=== PATIENT | male | born 1975 | race African-American/Black ===

== ENCOUNTER 2021-05-05 10:38 | Emergency (ER) | payer BC ==
[2021-05-05 22:36] LABS: SARS-CoV-2 PCR by NAA DETECTED (NotDetected)
== END 2021-05-05 11:32 | disposition home or self-care (01) ==
LOC: ERS 10:38
DX: U07.1 COVID-19 (principal); F17.210 Nicotine dependence, cigarettes, uncomplicated
CPT/HCPCS: 99284; U0003; U0005

== ENCOUNTER 2021-06-18 05:22 | Emergency (ER) | payer BC, OTHER | END 2021-06-18 05:50 | disposition home or self-care (01) | LOC: ERS 05:22 | DX: M25.572 Pain in left ankle and joints of left foot (principal); M79.662 Pain in left lower leg; F17.210 Nicotine dependence, cigarettes, uncomplicated | CPT/HCPCS: 99283 ==

== ENCOUNTER 2022-12-16 16:31 | Emergency (ER) | payer OTHER ==
[2022-12-16] MEDS ORDERED: Orphenadrine Citrate 60 MG/2 ML VIAL ONE (17:41)
[2022-12-16] MEDS ORDERED: HYDROcodone/Acetaminophen 5/325 mg Tablet ONE (18:31)
[2022-12-16] MEDS ORDERED: Ketorolac Tromethamine 30 MG/ML VIAL ONE (18:31)
== END 2022-12-16 21:14 | disposition home or self-care (01) ==
LOC: ERS 16:31
DX: M54.50 Low back pain, unspecified (principal); I10 Essential (primary) hypertension; F17.210 Nicotine dependence, cigarettes, uncomplicated
CPT/HCPCS: 96372; 99283; J1885; J2360

== ENCOUNTER 2024-01-28 04:21 | Emergency (ER) | payer OTHER ==
[2024-01-28] MEDS ORDERED: Metoclopramide HCl 10 MG (2 mL) VIAL ONE (05:07)
[2024-01-28] MEDS ORDERED: Ketorolac Tromethamine 30 MG (1 mL) VIAL ONE (05:07)
[2024-01-28] MEDS ORDERED: Dexamethasone 10 MG/ML VIAL ONE (05:07)
[2024-01-28 05:14] LABS: #Basophils 0.08 10x3/uL (0.0-0.2); %Basophils 0.9 % (0.0-1.0); %Eosinophils 5.7 % (0.0-10.0); %Lymphocytes 39.4 % (21.0-51.0); %Monocytes 13.3 % (0.0-10.0); %Neutrophils 40.5 % (42.0-75.0); Hematocrit 43.9 % (42.0-52.0); Mean Corpuscular HGB CONC 34.2 g/dL (32.0-36.0); Mean Corpuscular Hemoglobin 32.6 pg (27.0-31.0); Mean Corpuscular Volume 95.4 fL (78.0-98.0); Mean Platelet Volume 9.4 fL (7.4-10.4); Platelet Count 238 10x3/uL (130-400); RBC Distribution Width 12.7 % (11.5-14.5)
[2024-01-28 05:37] LABS: ALT (SGPT) 41 U/L (8-55); AST (SGOT) 32 U/L (5-34); Albumin 3.7 g/dL (3.5-5.0); Alkaline Phosphatase 81 U/L (40-110); Anion Gap 11 mmol/L (10-20); BUN (Urea Nitrogen) 8 mg/dL (8.9-20.6); Bilirubin, Total 0.4 mg/dL (0.2-1.2); Calc. Creatinine Clearance 0 mL/min (70-130); Calcium 9.4 mg/dL (7.8-10.44); Carbon Dioxide 22 mmol/L (22-29); Chloride 106 mmol/L (98-107); Estimated GFR 83; Globulin 4.6 g/dL (2.4-3.5); Glucose 124 mg/dL (70-105); Lipase 24 U/L (8-78); Potassium 4.3 mmol/L (3.5-5.1); Protein, Total 8.3 g/dL (6.0-8.3); Sodium 135 mmol/L (136-145)
[2024-01-28 05:42] LABS: Troponin I 0.011 ng/mL (< 0.028)
== END 2024-01-28 06:49 | disposition home or self-care (01) ==
LOC: ERS 04:21
DX: B34.9 Viral infection, unspecified (principal)
CPT/HCPCS: 36415; 70450; 71045; 80053; 83690; 84484; 85025; 93005; 96374; 96375; J1100; J1885; J2765